=== PATIENT | female | born 1935 | race Caucasian/White ===

== ENCOUNTER 2023-06-08 14:27 | Inpatient (IN) | payer MEDICARE, OTHER, SELFPAY ==
[2023-06-08] VITALS (19 sets, daily range): BP systolic 128–218; BP diastolic 60–107; BMI 25.3; BMI 25.1
--- NOTE | 2023-06-08 11:45 | ED.GENMED ---
History of Present Illness
General
Chief Complaint: Heart Rate Problem
Source: patient
Exam Limitations: none
Time Seen by Provider: 06/08/23 11:45
Nursing documentation reviewed up to this point in time: agreed with
Travel History
Have you had any contact with someone who has COVID-19?: No
Do you have any symptoms of coronavirus? Fever > 100 degrees, chills, cough, shortness of breath, sore throat, loss of taste or smell, muscle aches, or headache?: No
History of Present Illness
History of Present Illness:
87-year-old female with history of HTN, HLD, IBS, paroxysmal SVT in 11/2021 hypothyroid presents for 'irratic pulse.' States 2 days of intermittent sudden onsets of weakness, lightheadedness, fluttering in chest, funny feeling in throat lasting
seconds to minutes. States she applied her pulse ox during the night and HR was in 40's. Episode 6 p.m. last night lasted 2 hours. Denies chest pain, SOB, abd pain, n/v/d/c. Last episode on arrival here. Now feels 'funny feeling' points to notch in
throat. Denies CP, lightheadedness now.
Past History
Past History
ED Past Medical History: HTN, Hypercholesterolemia, Hypothyroidism, Other (irritable bowel syndrome) and Other (Paroxysmal SVT)
ED Past Surgical History: Orthopedic
Social History
Tobacco: Non-smoker
Alcohol: Occasional
Drug: None
Personal:
Living: alone
Employment: Retired
Family History
Family History: Other (nc)
Review of Systems
Review of Systems
Allergies reviewed?: Yes
All Other Systems: ROS reviewed and negative except as documented in HPI and ROS
Constitutional: Reports fatigue; Denies fever
EENT: Denies sore throat
Respiratory: Denies cough or trouble breathing
Cardiac: Reports palpitations (with funny feeling in throat); Denies chest pain, diaphoresis or syncope
ABD/GI: Denies abdominal pain, nausea, vomiting, diarrhea or anorexia
: Denies frequency, difficulty voiding or urgency
Musculoskeletal: Reports no symptoms
Skin: Reports no symptoms
Neurological: Reports no symptoms
Phy Exam
Physical Exam
Physical Exam:
GENERAL: No acute distress. A&Ox3.
CONSTITUTIONAL: Afebrile.
EYES: PERRL, conjunctivae normal
Neck: Supple
ENMT: moist mucus membranes, Pharynx nl
RESPIRATORY: Regular respirations, nonlabored, lungs clear.
CARDIOVASCULAR: Regular rate and rhythm, no murmurs, no rubs. HR 40's, sinus, 2:1 heart block. BP 189/86
GI: Soft, nontender, normal BS
MUSCULOSKELETAL: Moves with ease. Well perfused.
SKIN: Warm, dry, pink
PSYCH: Normal mood and affect. Well kept, interactive and appropriate
NEUROLOGIC: Awake, alert and oriented. No focal neurological deficits
Course
Orders/Labs/Results
Orders:
Orders
06/08/23
Electrocardiogram (*1) Stat
Reason for Study: Chest Pain
Comment: DONE
06/08/23 10:41
ECG [Electrocardiogram (*1)] Urgent
Reason for Study: Chest Pain
EKG- Treatment ONCE
06/08/23 12:16
Complete Blood Count/With Diff Urgent
Comprehensive Metabolic Panel Urgent
NT-proBNP Urgent
TSH Reflex To Free T4 Urgent
Troponin I Urgent
06/08/23 13:29
Echo 2D MMode Color/Doppler Routine
Reason for Study: heart block, needs pacemaker
06/08/23 14:11
Admit/Transfer Patient As Directed
Co-Sign Provider:
Level of Care: Inpatient admission
Assign to:: IVU
Physician / Group: Dell Reece
Diagnosis: High degree heart block
Reason for Hospitalization: High degree heart block needing pacemaker placement
Expected length of stay greater than two midnights?: Yes
ELOS- Estimated Length of Stay in days: 2
I certify the patient meets the requirements for IP care: Yes
06/08/23 14:13
Code Status As Directed
Resuscitation Status: Full Code
06/08/23 14:15
Add On- LAB Routine
Tests Added?: TSH; FT4
06/08/23 14:21
INT (Intravenous Needle Therapy) As Directed
Comment: #20 IV gauge catheter
Notify MD As Directed
Notify physician if: no consent on chart
Surgical Procedure As Directed
Surgical Procedure: pacemaker implant
06/09/23 Breakfast
NPO
Allow oral meds: Yes
Allow clear liquids: No
NPO for procedure after (time): midnight
06/09/23 08:00
CeFAZolin 1 GRAM [Ancef] 1 gram 0.9% Sod Chloride 500 ml Irr [Nss Irrigation Bottle] 500 ml IRRIG CATH
CeFAZolin 2 GRAM [Ancef] 2 grams in 10 ml IV CATH
Abnormal Lab Results
06/08/23
12:16
Glucose 108 H mg/dl
(70-99)
Calcium 10.3 H mg/dl
(8.4-10.2)
06/08/23 12:16
06/08/23 12:16
Vital Signs
Initial and Last Documented VS:
Initial Vital Signs
Temp Pulse Resp BP Pulse Ox
98.3 F 50 20 202/79 98
06/08/23 10:50 06/08/23 10:50 06/08/23 10:50 06/08/23 10:50 06/08/23 10:50
Last Documented Vital Signs
Temp Pulse Resp BP Pulse Ox
98.3 F 51 17 129/85 96
06/08/23 10:50 06/08/23 15:45 06/08/23 15:45 06/08/23 15:30 06/08/23 15:45
Strip Stamp Straightener consulted with Physician
Strip Stamp Straightener consulted with physician?: Yes
Name of Physician Consulted: Dandy
MDM/Problems Addressed
Differential Diagnosis Includes:
SVT, arrhythmia, DC
MDM/Problems Addressed:
87-year-old female with history of HTN, HLD, IBS, paroxysmal SVT in 11/2021 hypothyroid presents for 'irratic pulse.' States 2 days of intermittent sudden onsets of weakness, lightheadedness, fluttering in chest, funny feeling in throat lasting
seconds to minutes. States she applied her pulse ox during the night and HR was in 40's. Episode 6 p.m. last night lasted 2 hours. Denies chest pain, SOB, abd pain, n/v/d/c. Last episode on arrival here. Now feels 'funny feeling' points to notch in
throat. Denies CP, lightheadedness now.
12:10 PM
EK:1 heart block Mobitz 2
Pacer pads applied
Vital signs stable
Consulted cardiology Dr. Womack who will be in to see patient
1:30 PM
Cardiology in: admit for pacemaker tomorrow
Hospitalist notified of admission
Patient's monitor is showing patient going in and out of normal sinus with a heart rate of 74 to the heart block in the 40s
Blood pressure remains stable
*Critical Care Note
Total Time (30-74mins, 75-104mins- exclusive of procedures): Not Applicable
Patient Management
Social determinants of health affecting care: Strong social support
ED Attending Note
-
Portions of this chart may have been created with voice recognition software.� Occasional wrong word or��sound alike� substitutions may have occurred due to the inherent limitations of voice recognition software.
Discharge Plan
Departure
Patient Disposition: Admit
Date of Disposition: 06/08/23
Time of Disposition: 12:27
Presentation/result/management discussed w/ accepting MD/DO: Vu
Condition: Serious
Discharge Problem:
AV block, Mobitz 2
Interventions
Interventions:
*Risk Screen - Suicide Last Done: 06/08/23 12:06
*General Assessment Last Done: 06/08/23 12:06
*Neglect/Abuse Screening Last Done: 06/08/23 12:06
ED- Fall Risk Assessment Last Done: 06/08/23 12:06
*ED COVID-19 Vaccine History Last Done: 06/08/23 12:06
ED- Cardiac Assessment Last Done: 06/08/23 12:06
ED- Pulmonary Assessment Last Done: 06/08/23 12:06
[2023-06-08 12:25] LABS: % Basophils 0.5 % (0-2); % Eosinophils 1.4 % (0-6); % Immature Granulocytes 0.4 % (0-0.5); % Lymphocytes 26.8 % (20.5-51.1); % Monocytes 6.9 % (1.7-9.3); Absolute Eosinophils 0.1 10^3/uL (0-0.7); Absolute Lymphocytes 2.1 10^3/uL (1.2-3.4); Absolute Monocytes 0.5 10^3/uL (0.1-0.6); Hematocrit 40.2 % (37.0-47.0); Hemoglobin 13.9 g/dL (12.0-16.0); Mean Corp Hgb Conc. 34.6 g/dL (33.0-37.0); Mean Corpuscular Hgb 30.7 pg (27.0-31.0); Mean Corpuscular Volume 88.7 fL (81.0-99.0); Mean Platelet Volume 9.5 fL (7.4-10.4); Nucleated Red Blood Cells % 0 %; Platelet Count 251 10^3/uL (130-400); Red Blood Cell Count 4.53 10^6/uL (4.20-5.40); Red Cell Dist. Width 13.2 % (11.5-14.5); White Blood Cell Count 7.8 10^3/uL (4.8-10.8)
[2023-06-08 12:42] LABS: ALT (SGPT) 26 U/L (0-35); AST (SGOT) 32 U/L (14-36); Albumin 4.8 g/dl (3.5-5.0); Alkaline Phosphatase 101 U/L (38-126); Blood Urea Nitrogen 15 mg/dl (7-17); Calcium 10.3 mg/dl (8.4-10.2); Carbon Dioxide 25 mmol/L (22-30); Chloride 104 mmol/L (98-107); Estimated Creatinine Clearance 46 ml/min; Glucose 108 mg/dl (70-99); Potassium 4.2 mmol/L (3.5-5.1); Sodium 135 mmol/L (135-145); Total Bilirubin 0.9 mg/dl (0.2-1.3); Total Protein 7.6 g/dl (6.3-8.2); eGFR > 60.00
[2023-06-08 12:45] LABS: NT-proBNP 855 pg/ml; Troponin I < 0.012 ng/ml
[2023-06-08 13:24] LABS: TSH Reflex To Free T4 1.46 uIU/ml (0.47-4.68)
--- NOTE | 2023-06-08 13:29 | CON.CAR ---
Addendum entered and electronically signed by Kenan Womack MD 06/08/23 14:45:
I saw and examined the patient.
The [employer]'s note was reviewed and I agree with the note.
Comment: 87 y/o female with hypertension, hypothyroidism, HLD, and SVT here with intermittent light headedness and palps/ Typically on Metoprolol given SVT but has been holding for two days. Currently feeling ok lying in bed. On exam rrr, no m/r/g.
CTA b. NO le c/c/e. A&O x3. 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 NPO p MN for ppm tomorrow.
Original Note:
Consultation
Consultation Request
Date/Time Consultation Requested: 06/08/23 1233
Date/Time Consultation Performed: 06/08/23 1300
Requesting Provider: Maisha Luo NP
Performing Provider: Berna AGUERO for Dr. Womack
Reason for Consultation: heart block
Medical History
-
Chief Complaint: weakness and fluttering
History of Present Illness:
87 y/o female with hypertension, hypothyroidism, HLD, and SVT who is here for evaluation of 2 days of feeling intermittent episodes of 'not feeling herself' with leg weakness and fluttering in her throat. She sits down and it passes after a few
minutes. It happens multiple times per day. She has not taken metoprolol since Tuesday at 3:30. BP stable.
Past Medical History
Past Medical History: Arrhythmias, HTN, Hypercholesterolemia and Hypothyroidism
Social History
Living: Alone
Family History
Family History: Reviewed & Not Pertinent
Allergies / Home Medications
Allergy/AdvReac Type Severity Reaction Status Date / Time
iodine Allergy Hives Verified 06/08/23 10:49
�Medication �Instructions �Recorded �Confirmed �Type
rosuvastatin 10 mg tablet 10 mg PO HS High Cholesterol 06/11/15 06/08/23 History
calcium citrate 315 mg-vitamin D3 1 tab PO NOON Supplement 04/14/18 06/08/23 History
5 mcg (200 unit) tablet (Calcium
Citrate + D)
levothyroxine 50 mcg tablet 50 mcg PO DAILY Thyroid 04/14/18 06/08/23 History
Benefiber (guar gum) 2 tsp PO DAILY bowels 06/08/23 06/08/23 History
acetaminophen 650 mg 1,300 mg PO DAILYPRN PRN mild pain 06/08/23 06/08/23 History
tablet,extended release
amlodipine 2.5 mg tablet 2.5 mg PO DAILY Blood Pressure 06/08/23 06/08/23 History
diphenhydramine HCl 50 mg/30 mL 41.7 - 83.3 mg PO HS PRN sleep 06/08/23 06/08/23 History
oral liquid (ZzzQuil)
losartan 100 mg tablet 100 mg PO DAILY Blood Pressure 06/08/23 06/08/23 History
metoprolol succinate 25 mg 25 mg PO HS Blood Pressure 06/08/23 06/08/23 History
tablet,extended release 24 hr
peg 400-propylene glycol (PF) 0.4 2 drp BOTH EYES DAILYPRN PRN dry 06/08/23 06/08/23 History
%-0.3 % eye drops in a dropperette eyes
(Systane (PF))
Review of Systems
-
History Source: Patient
All other systems: Negative unless noted
Cardiac: Palpitations
Neurological: Weakness
Physical Exam
Vital Signs
Temp Pulse Resp BP Pulse Ox
98.3 F 74 16 135/66 98
06/08/23 10:50 06/08/23 12:50 06/08/23 12:50 06/08/23 12:50 06/08/23 12:50
Lab Results
06/08/23 12:16
06/08/23 12:16
Troponin I < 0.012 ng/ml 06/08/23 12:16
Ujp-T-Xfsrneqaruu Pept 855 pg/ml 06/08/23 12:16
Physical Exam
General: Well Developed, Well Nourished and No Apparent Distress
HEENT: Normocephalic and Anicteric
Respiratory: Clear and Non Labored Respirations
Cardiac: Regular Rhythm
Musculoskeletal: No Edema
Skin: Warm and Dry
Neuro: AO x 3
Psych: Calm
Impression / Plan
-
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
-high-risk condition- requires close monitoring- admit to IVU
-pacemaker recommended and patient agreeable- will arrange for tomorrow
-check echo, TSH
-allergy to iodine- will discuss pre-treatment with EP
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 Hold metoprolol until after pacemaker.
SVT:
-hold metoprolol
-resume after pacemaker
HTN:
-mildly elevated in ER
-on losartan and amlodipine. Hold metoprolol.
-follow
HLD:
-statin
Data Reviewed
-
EKG: Tracing Personally Visualized and interpreted (NSR with 2:1 heart block)
Medical Tests (Nuc Med, Echo etc): Report Reviewed by me (echo 05/13/2021: Normal left ventricular size, wall thickness and systolic function. LV ejection fraction is 60-65% by visual assessment. Mild mitral regurgitation. Mild tricuspid
regurgitation. ) and Other (updated echo ordered)
Labs: Labs Reviewed by me
--- NOTE | 2023-06-08 14:44 | HPS.HSE ---
Family Physician
-
Family Physician: Calvin Dior
Chief Complaint
-
Palpitation, loss of energy
History of Present Illness
Patient is 87-year-old female with past medical history of essential hypertension, hyperlipidemia, IBS, paroxysmal supraventricular tachycardia, history of left TKR, right shoulder rotator cuff tear, history of left retinal hemorrhage, colonic
polyps, lumbago came to ER with sudden onset of palpitation and associated lightheadedness. All the symptoms started early in the morning today. Patient denies of any previous cardiac history/associated chest pain. No history of dizziness
syncope. Patient does not have any ongoing shortness of breath/cough/orthopnea/PND.
No abdominal or complaints.
Medical History
Past Medical History
Past Medical History: Reports Other
Additional Past Medical History:
history of essential hypertension, hyperlipidemia, IBS, paroxysmal supraventricular tachycardia, history of left TKR, right shoulder rotator cuff tear, history of left retinal hemorrhage, colonic polyps, lumbago
Past Surgical History: Reports Other
Social History
Tobacco: Non-smoker
Alcohol: None
Drug: None
Living: With Family
Family History
Family History: Not pertinent
Allergies / Home Medications
Allergies reflects when Allergies were last updated in [facility].
Home Medications with original date entered in [facility]
Allergy/Medication List:
Allergies
Allergy/AdvReac Type Severity Reaction Status Date / Time
iodine Allergy Hives Verified 06/08/23 10:49
Home Medications
rosuvastatin 10 mg tablet 10 mg PO HS High Cholesterol 06/11/15
calcium citrate 315 mg-vitamin D3 5 mcg (200 unit) tablet (Calcium Citrate + D) 1 tab PO NOON Supplement 04/14/18
levothyroxine 50 mcg tablet 50 mcg PO DAILY Thyroid 04/14/18
Benefiber (guar gum) 2 tsp PO DAILY bowels 06/08/23
acetaminophen 650 mg tablet,extended release 1,300 mg PO DAILYPRN PRN mild pain 06/08/23
amlodipine 2.5 mg tablet 2.5 mg PO DAILY Blood Pressure 06/08/23
diphenhydramine HCl 50 mg/30 mL oral liquid (ZzzQuil) 41.7 - 83.3 mg PO HS PRN sleep 06/08/23
losartan 100 mg tablet 100 mg PO DAILY Blood Pressure 06/08/23
metoprolol succinate 25 mg tablet,extended release 24 hr 25 mg PO HS Blood Pressure 06/08/23
peg 400-propylene glycol (PF) 0.4 %-0.3 % eye drops in a dropperette (Systane (PF)) 2 drp BOTH EYES DAILYPRN PRN dry eyes 06/08/23
Review of Systems
-
A 12 point ROS was completed and negative except as noted: Yes
Physical Exam
Vital Signs
Vital Signs
Temp Pulse Resp BP Pulse Ox
98.3 F 77 14 161/77 98
06/08/23 10:50 06/08/23 13:45 06/08/23 13:45 06/08/23 13:30 06/08/23 13:45
Physical Exam
General: No Apparent Distress
HEENT: Atraumatic; No Oxygen
Respiratory: Clear
Cardiac: S1/S2, Regular Rhythm and Bradycardia; No Murmur or Rub
GI: Soft, Non Tender, Non Distended and Normal Bowel Sounds; No Organomegaly
Musculoskeletal: No Clubbing, No Cyanosis and No Edema
Skin: No Rash
Neuro: Awake, Alert, Oriented and Nonfocal/grossly intact
Laboratory Results
-
06/08/23 12:16
06/08/23 12:16
Laboratory Results
Total Bilirubin 0.9 mg/dl (0.2-1.3) 06/08/23 12:16
AST 32 U/L (14-36) 06/08/23 12:16
ALT 26 U/L (0-35) 06/08/23 12:16
Alkaline Phosphatase 101 U/L (38-126) 06/08/23 12:16
Troponin I < 0.012 ng/ml 06/08/23 12:16
Data Reviewed
-
Lab Data: Labs Reviewed by me, Discussed with Patient and Discussed with Family
Impression/Plan
-
1. 2:1 AV block
-Patient symptomatic from 2-1 AV block
-Symptomatic and having loss of energy/palpitation
-Check TSH free T4
-Hold metoprolol dose
-Will required IV dopamine support AF have signs of dizziness/hypotension
-Cardiology planning to do pacemaker in the morning tomorrow
2. Hypothyroidism
-Continue levothyroxine 50 mcg/day
-Follow TSH free T4 level
3. Essential HTN
-continue norvasc/losartan
-PRN IV hydralazine for SBP > 160
4. HLD
-maintain on crestor
DVT PPX -scd
Full code
Total time spent : 77 mins
I personally saw and examined the patient.
I have reviewed all diagnostic interpretations and treatment plans as written.
Time includes patient management by me, time spent at the patients bedside, time to review lab and imaging results, discussing patient care, documentation in the medical record, and time spent with the family or caregiver and discussing care plan
with RN/Consultants.
[2023-06-08] MEDS: APRESOLINE 5 MG IV (18:42)
[2023-06-08] MEDS: DELTASONE 40 MG PO (20:43)
[2023-06-08] MEDS: FLUSH (NSS) 1 FLUSH IV (20:44)
[2023-06-08] MEDS: CRESTOR 10 MG PO (21:48)
[2023-06-09] VITALS (12 sets, daily range): BP systolic 122–174; BP diastolic 54–85
--- NOTE | 2023-06-09 00:02 | PTCARENOTE ---
Pt AOX3; pleasant. Assessment noted as documented. BP 142/60. SB w/ 2:1 HB 40s-50s. Denies any dizziness/palpitations/lightheadedness. Pt amb in room w/ standby assist; steady gait. Pt aware of NPO status for PPM in AM. Currently in bed; call rodas
w/in reach.
[2023-06-09 04:41] LABS: Hematocrit 39.9 % (37.0-47.0); Hemoglobin 13.8 g/dL (12.0-16.0); Mean Corp Hgb Conc. 34.6 g/dL (33.0-37.0); Mean Corpuscular Hgb 30.8 pg (27.0-31.0); Mean Corpuscular Volume 89.1 fL (81.0-99.0); Mean Platelet Volume 9.5 fL (7.4-10.4); Platelet Count 246 10^3/uL (130-400); Red Blood Cell Count 4.48 10^6/uL (4.20-5.40); Red Cell Dist. Width 13.2 % (11.5-14.5); White Blood Cell Count 5.8 10^3/uL (4.8-10.8)
--- NOTE | 2023-06-09 04:44 | PTCARENOTE ---
CHG wipes completed. Gown, leads, sheets changed. L arm #20 gauge placed.
[2023-06-09 05:10] LABS: Blood Urea Nitrogen 20 mg/dl (7-17); Calcium 10.3 mg/dl (8.4-10.2); Carbon Dioxide 20 mmol/L (22-30); Chloride 103 mmol/L (98-107); Estimated Creatinine Clearance 40 ml/min; Glucose 160 mg/dl (70-99); Potassium 4.5 mmol/L (3.5-5.1); Sodium 134 mmol/L (135-145); eGFR > 60.00
[2023-06-09] MEDS: SYNTHROID 50 MCG PO (05:50)
[2023-06-09] MEDS: NORVASC 2.5 MG PO (08:19)
[2023-06-09] MEDS: COZAAR PO (08:20)
[2023-06-09] MEDS: DELTASONE 40 MG PO (08:21)
[2023-06-09] MEDS: BENADRYL 50 MG PO (08:21)
--- NOTE | 2023-06-09 10:46 | CM ---
CM following for DC planning needs.
Met w/ patient, children at bedside to complete initial assessment.
Pt. resides alone in a private, 2 story home. Functionally, patient is quite indep. w/ ADLs, mobility without the use of any assisted device. Pt. has no other DME in the home.
Pt. has Rx plan and uses [facility] on [address]
Anticipated DC plan is for home without needs.
CM to follow.
--- NOTE | 2023-06-09 11:10 | PTCARENOTE ---
Pt received from rn training RN. Guerline3, resting in bed. SB w/ 2:1 second degree HB on radiographer cardiac catheterization. HR 40s-50s. VSS. Remains NPO for PPM today. Assessment documented. Pt without complaint at this time.
--- NOTE | 2023-06-09 14:37 | W.PN.HOSP.TC ---
Today's Communication/Plan
-
for PPM placement today
Assessment / Plan
Assessment / Plan
1. 2:1 AV block
-Patient symptomatic from 2-1 AV block
-Symptomatic and having loss of energy/palpitation
-TSH FT4 WNL
-Hold metoprolol dose
-Will required IV dopamine support AF have signs of dizziness/hypotension
-waiting for PPM placement today
2. Hypothyroidism
-Continue levothyroxine 50 mcg/day
-TSH/FT4 normal
3. Essential HTN
-continue norvasc/losartan
-PRN IV hydralazine for SBP > 160
4. HLD
-maintain on crestor
5. Mild hyponatremia
- monitor
DVT PPX -scd
Full code
Anticipated Discharge: Within 24 hours
Subjective/Interval History
-
Date of Service: June 09, 2023
No complaints overnight except some dizziness while walking out of bathroom last night
Denies any palpitations/chest discomfort
Objective Data
-
Labs:
Laboratory Results
06/09/23
04:21
WBC 5.8
Hgb 13.8
Hct 39.9
Plt Count 246
Sodium 134 L
Potassium 4.5
Chloride 103
Carbon Dioxide 20 L
BUN 20 H
Creatinine 0.8
Glucose 160 H
Calcium 10.3 H
Vital Signs:
Vital Signs
Temp Pulse Resp BP Pulse Ox
98.5 F 48 20 158/81 97
06/09/23 11:35 06/09/23 08:20 06/09/23 11:35 06/09/23 08:19 06/09/23 11:35
I&O
06/08/23 06/09/23 06/10/23
06:59 06:59 06:59
Intake Total 480 / 480
Output Total
Balance 479 / 479
Review of Systems
-
Respiratory: Reports No Symptoms
Cardiac: Reports No Symptoms
Abdomen/GI: Reports No Symptoms
Physical Exam
-
General: No Apparent Distress and Comfortable
HEENT: Negative Oxygen
Respiratory: Clear to Auscultation
Cardiac: S1/S2, Irregular Rhythm and Bradycardic; Negative Murmur or Rub
GI: Soft, Nontender, Nondistended and Normal Bowel Sounds
Musculoskeletal: No Edema
Neuro: Awake, Alert, Oriented, No Motor Deficits and Nonfocal/Grossly Intact
Psych: Calm
[2023-06-09] MEDS: TYLENOL 650 MG PO (15:33)
--- NOTE | 2023-06-09 17:52 | W.PN.CD ---
Today's Communication / Plan
-
- PPM today
Impression / Plan
-
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
-high-risk condition- requires close monitoring- admit to IVU - PPM today
-pacemaker recommended and patient agreeable- will arrange for tomorrow
-ECHO 06/08/23 - Normal left ventricular size with mild concentric remodeling and hyperdynamic systolic function. No regional wall motion abnormalities are seen. Estimated ejection fraction is 70%.
-allergy to iodine- s/p pre-treatment with possibility of contrast
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 Hold metoprolol until after pacemaker.
-Resume Metoprolol after implant.
SVT:
-hold metoprolol
-resume after pacemaker
HTN:
-mildly elevated in ER
-on losartan and amlodipine. Hold metoprolol.
-follow
HLD:
-statin
Physical Exam
Vital Signs/Labs
Vital Signs
Temp Pulse Resp BP Pulse Ox
98.2 F 48 18 174/56 97
06/09/23 15:56 06/09/23 16:45 06/09/23 15:56 06/09/23 15:54 06/09/23 15:56
06/08/23 06/09/23 06/10/23
06:59 06:59 06:59
Actual Weight 62.2 kg
06/09/23 04:21
06/09/23 04:21
06/08/23
12:16
Amk-W-Ngektipzehl Pept 855
LAB Results
06/08/23
12:16
Troponin I < 0.012
Physical Exam
Constitutional: No acute distress and Comfortable
EENT: Anicteric and Moist mucous membranes
Cardiovascular: Rhythm & rate is regular, Pedal edema is absent, JVD present and Systolic murmur present
Respiratory: Respiratory effort normal, Lungs clear to auscul. and Wheeze Absent
GI: Soft, Flat and Non tender
Neuro/Psych: Alert, Oriented and AO x 3
Other: Cardiac Device Site
Data Reviewed
-
Date of Service: June 09, 2023
Medical Decision Making: Test Interpretation and Review of Case with other Provider
EKG: Tracing Personally Visualized and interpreted
Echo: Tracing Personally Visualized and interpreted
Medical Tests (PFT, Pathology etc): Discussed with Physician, Discussed with Patient and Discussed with Family
Labs: Labs Reviewed by me
Old Records: Reviewed
--- NOTE | 2023-06-09 17:54 | ITS.CL.PACE ---
[employer]isher - Pacemaker Implant
Pacemaker Implant
Procedure Report:
Dual Chamber Pacemaker Placement:
Ms. Jeffery is a very pleasant 87 yrs old woman who presented with high degree of AV block and is recommended for PPM placement. Pateint is a left handed person and would like it placed on the right side.
Indications: High degree AV block
Date of the Procedure: 06/09/2023
Pre-Operative Diagnosis: High degree AV block
Post-Operative Diagnosis: High degree AV block
Procedure Performed: DUAL CHAMBER PACEMAKER IMPLANTATION
Performing Physician:
Baljeet Clifton MD
Anesthesia:
See anesthesia records
Pre-operative antibiotics:
Ancef 2gm IV
Detailed Description of the Procedure:
The patient was identified using hospital identification and informed consent obtained for the procedure. The risks were explained including, but not limited to: Bleeding, infection, arrhythmia, stroke, vascular/cardiac/lung puncture, surgery,
pacemaker dependency/device malfunction. All questions were answered.
The patient was brought to the electrophysiology laboratory in stable condition in fasting state. Continuous electrocardiographic and hemodynamic monitoring was initiated.
The initial rhythm was normal sinus rhythm with 2:1 AV block.
A surgical pause and time out was performed immediately prior to the procedure with review of her medical history, recent labs, allergies and medications with site of procedure identified and consent noted in the chart. Antibiotics pre operatively
given. All team members concurred.
The procedure site was meticulously prepared with surgical scrub and allowed to dry with no pooling. Sterile draping was applied to cover the procedure site. The image intensifier was draped with sterile bag and positioned over the patient.
The right infraclavicular region was prepped and draped in the usual sterile fashion. Local anesthesia was administered subcutaneously using 1% lidocaine / Bupivacaine. The right cephalic vein cutdown was performed with an incision at the
delto-pectoral groove, and vascular sheaths were introduced for lead access. These were advanced into the right ventricle and the right atrium.
The right ventricular lead was secured in position with an active fixation technique at the apical septal location.
The right atrial lead was placed with passive fixation to the right atrial appendage.
There was excellent sensing, pacing, and impedance from the leads, with no diaphragmatic stimulation at 10 V output.�Bovie cautery, antibiotics, and fluoroscopy were used.
The sheaths were withdrawn, and the thresholds remained acceptable. The leads were secured in position at the venous entry site with 0-silk. A pocket was fashioned contiguous to the incision. The electrode terminals were connected to the pulse
generator, which was placed into the pocket. The wound was irrigated thoroughly with antibiotic solution.
The wound was closed in 3 layers using 2-0 VLoc then two layers of 4-0 V loc sutures to the dermis. Steri-strips were applied externally and covered with Aquacel bandage.
Procedure End:
The procedure was tolerated well.
Estimated Blood loss:
5 cc
Specimens Removed:
No cultures and no specimens were obtained. No intraoperative pathology was identified.
Fluoro time:
1.0 min / 1.59mGy
Urine output:
None
Packs / Drains/ Tubes:
None
Instrument / Sponge Count Correct:
Yes
Complications of the Procedure:
None
Condition of Patient at Time of Transfer:
Hemodynamically stable with no neurological or vascular compromise.
Device information:�
Generator: [employer]IAN [employer]IYUAN; Model: [id number]; Serial # [id number]
Atrial Lead:
[employer]; Model: 4574-45; Serial # [id number]
Measured data in the right atrium was sensing of 1.8 mV, impedance of 627 ohms and threshold of 0.5 V at 0.4ms.
RV Lead:
[employer]; Model: 5076-52; Serial # [id number]
Measured data in the RV lead was sensing of 12.9 mV, impedance of 875 ohms and threshold of 0.75 V at 0.4ms�
Dequan parameter settings were DDDR 60-110 bpm. �
����������� (Has atrial flutter at rate of 116 bpm)
����������� Mode Switch: On
����������� Paced AV interval: 180ms
����������� Sensed AV interval: 150 ms.
����������� Rate Adaptive A-V Interval: Off
Output parameters:
����������������������� Amplitude (V)������������� Pulse Width (ms)������� Sensitivity (mV)
����������� RA: ���� 3.5 ����������������� ����������� 0.4������������������ ����������� 0.3
����������� RV:����� 3.5������������������ ����������� 0.4������������������ ����������� 0.9
Summary:
Successful implantation of MRI compatible dual chamber pacemaker
Results/Recommendations:
-Please follow up CXR�
1. Please provide patient with adequate pain control�
Instructions to be given to patient:�
- Please follow up with [facility] at [address] [place] [address] ([phone]) to get your wound checked within 14 days of your discharge.
- Do not wet incision site until after it is evaluated at cardiology clinic. No soaking or bath until then. Showers or Sponge baths are OK.�Dab dry the area after a shower.
- Do not lift right elbow above shoulder, particularly with sudden jerking movements, for 1 month�
- Do not lift anything weighing more than 10 pounds with the right arm for 1 month�
- If you notice any fevers, shortness of breath, lightheadedness, chest pain, or worsening swelling in the wound site, please contact the arrhythmia clinic, contact your miniature set designer, or present to the hospital for evaluation.�
Baljeet Clifton MD
Electrophysiology
[2023-06-09] MEDS: TOPROL XL 25 MG PO (18:23)
--- NOTE | 2023-06-09 18:33 | PTCARENOTE ---
Pt received s/p PPM. RCW aquacel dressing CDI. R arm immobilizer in place. PPM settings DDDR 60-130. AV/V paced on media monitor. Pt without complaint at this time.
[2023-06-09] MEDS: CRESTOR 10 MG PO (22:16)
--- NOTE | 2023-06-09 23:03 | PTCARENOTE ---
AOx3; pleasant. R chest wall aquacel dressing c/d/i. Immobilizer on. Educated on activity restrictions. Verbalizes understanding. No c/o pain at this time. Pt ambulatory around room; standby assist. Currently resting in bed; call adrianna w/in reach.
[2023-06-09] MEDS: ANCEF 5 IV (23:23)
[2023-06-09] MEDS: FLUSH (NSS) 1 FLUSH IV (23:24)
[2023-06-10 04:34] VITALS: BP 133/64
[2023-06-10 04:54] LABS: Hematocrit 38.1 % (37.0-47.0); Hemoglobin 13.4 g/dL (12.0-16.0); Mean Corp Hgb Conc. 35.2 g/dL (33.0-37.0); Mean Corpuscular Hgb 31.2 pg (27.0-31.0); Mean Corpuscular Volume 88.8 fL (81.0-99.0); Mean Platelet Volume 9.6 fL (7.4-10.4); Platelet Count 232 10^3/uL (130-400); Red Blood Cell Count 4.29 10^6/uL (4.20-5.40); Red Cell Dist. Width 13.8 % (11.5-14.5); White Blood Cell Count 11.1 10^3/uL (4.8-10.8)
[2023-06-10 05:21] LABS: Blood Urea Nitrogen 33 mg/dl (7-17); Carbon Dioxide 22 mmol/L (22-30); Chloride 101 mmol/L (98-107); Estimated Creatinine Clearance 35 ml/min; Glucose 123 mg/dl (70-99); Magnesium 2.4 mg/dl (1.6-2.3); Sodium 135 mmol/L (135-145); eGFR > 60.00
[2023-06-10] MEDS: SYNTHROID 50 MCG PO (05:56)
[2023-06-10 07:30] VITALS: BP 120/66
[2023-06-10] MEDS: COZAAR 100 MG PO (08:18)
[2023-06-10] MEDS: NORVASC 2.5 MG PO (08:18)
[2023-06-10] MEDS: ANCEF 5 IV (08:19)
[2023-06-10] MEDS: TOPROL XL 50 MG PO (08:19)
[2023-06-10] MEDS: FLUSH (NSS) 1 FLUSH IV (08:20)
--- NOTE | 2023-06-10 08:54 | W.PN.HOSP.TC ---
Today's Communication/Plan
-
d/c home after cardio eval today
Assessment / Plan
Assessment / Plan
1. 2:1 AV block
s/p PPM on 06/08
-Patient symptomatic from 2-1 AV block
-Symptomatic and having loss of energy/palpitation
-TSH FT4 WNL
-Hold metoprolol dose
-post PPM care instruction on discharge paper
2. Hypothyroidism
-Continue levothyroxine 50 mcg/day
-TSH/FT4 normal
3. Essential HTN
-continue norvasc/losartan
-PRN IV hydralazine for SBP > 160
4. HLD
-maintain on crestor
5. Mild hyponatremia
- monitor
DVT PPX -scd
Full code
More than 30 minutes spent in discharge including
Final examination of the patient
Summarizing hospital stay
Instructions for continuing care to all relevant caregivers
Preparation of discharge records, prescriptions, and referral forms
Total time spent (in minutes): 35 mins
Anticipated Discharge: Today
Subjective/Interval History
-
Date of Service: June 10, 2023
resting comfortably in chair
having some discomfort at the PPM site
Objective Data
-
Labs:
Laboratory Results
06/10/23
04:45
WBC 11.1 H
Hgb 13.4
Hct 38.1
Plt Count 232
Sodium 135
Potassium 4.0
Chloride 101
Carbon Dioxide 22
BUN 33 H
Creatinine 0.9
Glucose 123 H
Calcium 10.0
Vital Signs:
Vital Signs
Temp Pulse Resp BP Pulse Ox
97.9 F 77 16 120/66 96
06/10/23 07:30 06/10/23 08:19 06/10/23 07:30 06/10/23 08:19 06/10/23 07:30
I&O
06/09/23 06/10/23 06/11/23
06:59 06:59 06:59
Intake Total 480 / 480 240 / 240
Output Total
Balance 479 / 479 240 / 240
Review of Systems
-
Respiratory: Reports No Symptoms
Cardiac: Reports No Symptoms
Abdomen/GI: Reports No Symptoms
Physical Exam
-
HEENT: Negative Oxygen
Respiratory: Clear to Auscultation
Cardiac: S1/S2, Irregular Rhythm and Bradycardic; Negative Murmur or Rub
GI: Soft, Nontender and Nondistended
Musculoskeletal: No Edema
Neuro: Awake, Alert, Oriented, No Motor Deficits and Nonfocal/Grossly Intact
Psych: Calm
--- NOTE | 2023-06-10 10:50 | W.PN.CD ---
Today's Communication / Plan
-
doing well s/p PPM
stable on current medical regimen: continue
we will arrange for follow up with us
please call us with additional questions
Impression / Plan
-
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
-ECHO 06/08/23 - Normal left ventricular size with mild concentric remodeling and hyperdynamic systolic function. No regional wall motion abnormalities are seen. Estimated ejection fraction is 70%.
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 metoprolol resumed s/p pacemaker.
-doing well s/p PPM implant 06/08
SVT:
-metoprolol resumed
-resume after pacemaker
HTN:
-stable
-on losartan and amlodipine and metoprolol
HLD:
-statin
Physical Exam
Vital Signs/Labs
Vital Signs
Temp Pulse Resp BP Pulse Ox
97.9 F 79 16 120/66 98
06/10/23 07:30 06/10/23 10:15 06/10/23 07:30 06/10/23 08:19 06/10/23 08:30
06/09/23 06/10/23 06/11/23
06:59 06:59 06:59
Actual Weight 62.2 kg
06/10/23 04:45
06/10/23 04:45
Magnesium 2.4 mg/dl (1.6-2.3) H 06/10/23 04:45
06/08/23
12:16
Fut-E-Xzolorrrbuh Pept 855
LAB Results
06/08/23
12:16
Troponin I < 0.012
Physical Exam
Constitutional: No acute distress and Comfortable
EENT: Moist mucous membranes
Cardiovascular: Rhythm & rate is regular, Pedal edema is absent, JVD pressure is normal and Systolic murmur absent
Respiratory: Respiratory effort normal, Lungs clear to auscul. and Wheeze Absent
GI: Soft
Neuro/Psych: AO x 3
Data Reviewed
-
Date of Service: June 10, 2023
EKG: Other (Tele: intermittent AV pacing)
[2023-06-10 11:23] VITALS: BP 110/64
--- NOTE | 2023-06-10 11:25 | CM ---
Pt. for DC today to home.
There are no identified DC needs.
Plan: HOME, no needs.
--- NOTE | 2023-06-10 12:07 | PTCARENOTE ---
D/c instructions given to patient and son, both verbalizes understanding. INT x 2 D/C'd, telemetry d/C'd, personal belongings packed and sent home with patient. D/C to home via wc accompanied by vol. amanda harrington.
--- NOTE | 2023-06-12 07:46 | W.DCSUMMARY ---
Discharge Summary
Discharge Data
Date of Admission: 06/08/23
Date of Discharge: 06/10/23
-
Pending Results: No
Hospital Course
Discharging Physician : Dr Dell Reece
Disposition :To home
Primary care physician : Dr Calvin Dior
Principal Discharge diagnosis :
High degree atrioventricular block
Mild hyponatremia
Chronic Discharge diagnosis :
Hypothyroidism
Essential hypertension
Hyperlipidemia
Hospital Course :
Patient is 87-year-old female with above-mentioned past medical history came to ER for having new onset of palpitation and lightheadedness. Symptoms were acute onset on the day of ER visit. In ER EKG showing patient having 2-1/high degree AV
block. Cardiology evaluated patient and recommended patient undergoing PPM placement. Thyroid functions were checked and were within normal limit. Patient metoprolol was held. Following day patient underwent uneventful pacemaker placement.
Postprocedure patient was resumed back on home dose of metoprolol. Patient discharged at this point with follow-up in cardiology in office.
Important imaging findings :
None
Procedure findings :
None
Discharge Plan
-
Patient Disposition: Home (Routine Discharge)
Discharge Diagnosis/Procedures: Heart block post Pacemaker implantation
Condition: Fair
Diet: Low Cholesterol
Activity: Other activity
Additional Activity: Do not lift more than 10 lb weight on right arm. Do not lift right arm above shoulder level.
Driving Restrictions: No driving for 1 week
Bathing Restrictions: OK to Shower
Activity Restrictions/Additional Instructions:
- Please follow up with [facility] at [address] [place] [address] ([phone]) to get your wound checked within 14 days of your discharge.
- Do not wet incision site until after it is evaluated at cardiology clinic. No soaking or bath until then. Showers or Sponge baths are OK.�Dab dry the area after a shower.
- Do not lift right elbow above shoulder, particularly with sudden jerking movements, for 1 month�
- Do not lift anything weighing more than 10 pounds with the right arm for 1 month�
- If you notice any fevers, shortness of breath, lightheadedness, chest pain, or worsening swelling in the wound site, please contact the arrhythmia clinic, contact your spar machine operator helper, or present to the hospital for evaluation.�
Stand Alone Forms: DC Inst - Implanted Device
Referrals:
Gardenia Pierce NP [Specified Professional Personl] - 06/20/23 11:40 am (Incision check appointment)
Calvin Dior MD [Family Provider] - in one to two months
Prescriptions:
Continued
rosuvastatin 10 MG tablet
10 mg PO HS
levothyroxine 50 MCG tablet
50 mcg PO DAILY
calcium citrate-vitamin D3 [Calcium Citrate + D] 1 EACH tablet
1 tab PO NOON
amlodipine 2.5 mg Tablet
2.5 mg PO DAILY
acetaminophen 650 mg Tablet Extended Release
1,300 mg PO DAILYPRN PRN (Reason: mild pain)
metoprolol succinate 25 mg Tablet Extended Release 24 Hr
25 mg PO HS
losartan 100 mg Tablet
100 mg PO DAILY
Systane (PF) 0.4-0.3 % Dropperette
2 drp BOTH EYES DAILYPRN PRN (Reason: dry eyes)
ZzzQuil 50 mg/30 mL Liquid
41.7 - 83.3 mg PO HS PRN (Reason: sleep)
Patient Comments:
06/08/2023, per pt., they take 1-2 tsp of this med. which equates to 25 ml - 50 ml of this med. HSPRN per pt.
Benefiber (guar gum) powder
2 tsp PO DAILY
Discharge Orders:
Discharge Patient (As Directed); Ordered 06/10/23
Ordered By: Dell Reece
Care Plan Goals
Care Plan Goals:
Problem: Readiness for enhanced knowledge related to diagnosis and treatment plan
Goal: Understand your diagnosis and treatment plan needs, including medications if applicable.
Instructions: Know your diagnosis, underlying causes and treatment plan options, including medications if applicable. Consult with your health care team to learn about your diagnosis and treatment plan, including medications if applicable.
Discharge Date and Time
Discharge Date/Time: 06/10/23 13:15
Print Language: LUX[place]
== END 2023-06-10 13:15 | disposition home or self-care (01) | DRG 243 ==
LOC: IVU 14:27
PROVIDERS: Internal Medicine Cardiovascular Disease; ADMITTING PHYSICIAN Hospitalist; CONSULT PHYSICIAN Internal Medicine Cardiovascular Disease; EMERGENCY PHYSICIAN Emergency Medicine; FAMILY PHYSICIAN Family Medicine
PROC: 02H63JZ Insertion of Pacemaker Lead into Right Atrium, Percutaneous Approach (ICD-10-PCS; 2023-06-09)
PROC: 0JH606Z Insertion of Pacemaker, Dual Chamber into Chest Subcutaneous Tissue and Fascia, Open Approach (ICD-10-PCS; 2023-06-09)
PROC: 02HK3JZ Insertion of Pacemaker Lead into Right Ventricle, Percutaneous Approach (ICD-10-PCS; 2023-06-09)
DX: I44.1 Atrioventricular block, second degree (principal); I49.5 Sick sinus syndrome; E87.1 Hypo-osmolality and hyponatremia; I47.19 Other supraventricular tachycardia; I10 Essential (primary) hypertension; E78.00 Pure hypercholesterolemia, unspecified; K58.9 Irritable bowel syndrome, unspecified; E03.9 Hypothyroidism, unspecified; K58.8 Other irritable bowel syndrome; M54.50 Low back pain, unspecified; Z96.652 Presence of left artificial knee joint; Z91.041 Radiographic dye allergy status; Z79.890 Hormone replacement therapy; Z87.19 Personal history of other diseases of the digestive system; Z91.040 Latex allergy status
CPT/HCPCS: 33208; 71045; 80048; 80053; 83735; 83880; 84443; 84484; 85025; 85027; 93005; 93306; 99285; C1769; C1785; C1892; C1898

== ENCOUNTER → 2024-01-18 12:57 | Outpatient (REF) | payer MEDICARE, OTHER, SELFPAY | LOC: RAD 12:57 | PROVIDERS: ATTENDING PHYSICIAN Family Medicine | DX: M79.672 Pain in left foot (principal) | CPT/HCPCS: 73630 ==

== ENCOUNTER → 2024-01-30 12:16 | Outpatient (REF) | payer MEDICARE, OTHER, SELFPAY | LOC: HWWDC 12:16 | PROVIDERS: ATTENDING PHYSICIAN Family Medicine | DX: Z12.31 Encounter for screening mammogram for malignant neoplasm of breast (principal) | CPT/HCPCS: 77063; 77067 ==

== ENCOUNTER → 2024-02-24 10:16 | Outpatient (REF) | payer MEDICARE, OTHER, SELFPAY | LOC: HWRAD 10:16 | PROVIDERS: ATTENDING PHYSICIAN Family Medicine | DX: Z78.0 Asymptomatic menopausal state (principal) | CPT/HCPCS: 93306 ==